=== PATIENT | male | born 2000 | race Caucasian/White ===

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

== ENCOUNTER 2020-01-28 19:40 | Emergency (ER) | payer OTHER ==
[~2020-01-28] VITALS: Ht 175.3 cm; Wt 97.5 kg
[2020-01-28 19:40] VITALS: Ht 175.3 cm; Wt 97.5 kg
[2020-01-28 20:33] VITALS: BP 128/76
== END 2020-01-28 20:33 | disposition home or self-care (01) ==
LOC: ED 19:40
DX: B34.9 Viral infection, unspecified (principal)